=== PATIENT | male | born 1980 | race Caucasian/White ===

== ENCOUNTER 2017-10-25 06:00 | Observation (INO) | payer OTHER ==
[2017-10-11 12:18] VITALS: BMI 28.0
[2017-10-15 13:58] VITALS: BMI 28.0
--- NOTE | 2017-10-15 14:01 | PAT Medication Instructions ---
Service Date Oct 15, 2017. Current Home Medication List Egrwhsz-Gzqxvhljtodhs-Kltolkis (Excedrin Extra Strength), 4 TAB PO PRN Buprenorphine Hcl-Naloxone Hcl (Suboxone 8-2 Mg), 0.25 TAB PO QID Medication Instructions For Your Scheduled Surgery - Hold the following medications the morning of surgery: Crhuetb-Ohdrtdwdxrxtn-Cwtdjcoq (Excedrin Extra Strength), 4 TAB PO PRN - Take the following medications the morning of surgery with a sip of water: Buprenorphine Hcl-Naloxone Hcl (Suboxone 8-2 Mg), 0.25 TAB PO QID - Take the following medications as scheduled the night before surgery: Buprenorphine Hcl-Naloxone Hcl (Suboxone 8-2 Mg), 0.25 TAB PO QID Vzxjrqc-Vadwhyrkkgthu-Rdidprng (Excedrin Extra Strength), 4 TAB PO PRN (if needed) If you have any questions please call us at [phone] or [phone] or [phone]
--- NOTE | 2017-10-15 14:47 | DIAGNOSTIC IMAGING REPORT ---
CHEST 2 VIEWS ROUTINE CLINICAL HISTORY: 37 years-old Male presenting with preoperative assessment. TECHNIQUE: PA and lateral views of the chest were obtained. COMPARISON: None. FINDINGS: Cardiomediastinal silhouette normal. Lungs and pleural spaces clear. Osseous structures normal. Upper abdomen normal. IMPRESSION: 1. No acute cardiopulmonary disease. Electronically signed by: Micky Encinas M.D. 10/15/2017 2:46 PM Dictated Date/Time: 10/15/2017 2:45 PM
[2017-10-15 15:18] LABS: BASO % 0.4 %; BASO ABS # 0.03 K/uL (0-0.2); EOS % 2.5 %; EOS ABS # 0.19 K/uL (0-0.5); HEMATOCRIT 43.1 % (42-52); IG# 0.01 K/uL (0.00-0.02); LYMPH % 34.4 %; LYMPH ABS # 2.58 K/uL (1.2-3.4); MEAN CELL VOLUME 87.6 fL (80-100); MEAN CORPUSCULAR HEMOGLOBIN 30.5 pg (25-34); MEAN CORPUSCULAR HGB CONC 34.8 g/dl (32-36); MEAN PLATELET VOLUME 9.9 fL (7.4-10.4); MONO % 7.3 %; MONO ABS # 0.55 K/uL (0.11-0.59); NEUT % 55.3 %; NEUT ABS # 4.15 K/uL (1.4-6.5); PLATELET COUNT 276 K/uL (130-400); RED CELL DISTRIBUTION WIDTH CV 12.4 % (11.5-14.5); WHITE BLOOD COUNT 7.51 K/uL (4.8-10.8)
[2017-10-15 15:31] LABS: CREATININE 0.84 mg/dl (0.60-1.40); POTASSIUM 3.8 mmol/L (3.5-5.1)
[2017-10-15 15:33] LABS: PTT PATIENT 29.2 SECONDS (21.0-31.0)
[~2017-10-25] VITALS: Ht 180.3 cm; Wt 90.9 kg
[2017-10-25] VITALS (14 sets, daily range): BP systolic 113–146; BP diastolic 61–92; PULSE 53–94; TEMP 36.6–37; O2SAT 93–99; Ht 180.3 cm; Wt 90.9 kg
[~2017-10-25 06:00] MED LIST: ACETAMINOPHEN 500 MG TAB PO SCH; ASPI-391 PO; BUPR1SUB23 PO; CEFAZOLIN 2000MG IV PUSH 15 ML IV SCH; CeleBREX 200 MG CAP PO SCH; GABAPENTIN 900 MG PO SCH; LACTATED RINGER'S 1000ML 1,000 ML IV SCH
[2017-10-25] MEDS ORDERED: PROPOFOL IV EMULSION 10 MG/ML 20 ML VIAL ONE (06:35)
[2017-10-25] MEDS ORDERED: GLYCOPYRROLATE INJ 0.2 MG/ML VIAL ONE ×2 (06:35→08:17)
[2017-10-25] MEDS ORDERED: DEXAMETHASONE SOD INJ 4 MG/ML VIAL ONE (06:35)
[2017-10-25] MEDS ORDERED: ONDANSETRON INJ 2 MG/ML 2 ML VIAL ONE ×2 (06:35→09:00)
[2017-10-25] MEDS ORDERED: FENTANYL CITRATE INJ 50 MCG/1 ML 2 ML VIAL ONE (06:35)
[2017-10-25] MEDS ORDERED: NEOSTIGMINE METHYLSULFATE 1 MG/ML 10ML VIAL ONE (06:35)
[2017-10-25] MEDS ORDERED: MIDAZOLAM HCL 1 MG/ML 2ML VIAL ONE (06:35)
[2017-10-25] MEDS ORDERED: LIDOCAINE HCL 2% 2 ML VIAL (20MG/ML) ONE (06:35)
[2017-10-25] MEDS ORDERED: LARYING-O-JET KIT (LTA) ONE (06:36)
[2017-10-25] MEDS ORDERED: SCOPOLAMINE 1.5 MG TDSY TD ONE ×2 (07:11→08:30)
[2017-10-25] MEDS ORDERED: HYDROmorphone INJ 2 MG/ML SYR/VIAL IV PRN (07:15)
[2017-10-25] MEDS ORDERED: ONDANSETRON INJ 2 MG/ML 2 ML VIAL IV PRN ×2 (07:15→09:15)
[2017-10-25] MEDS ORDERED: LABETALOL HCL IV 5 MG/ML 20ML IV PRN (07:15)
[2017-10-25] MEDS ORDERED: ATROPINE SULFATE 0.1 MG/ML 5ML SYR IV PRN (07:15)
[2017-10-25] MEDS ORDERED: BACITRACIN 50000 UNIT VIAL ONE (07:17)
--- NOTE | 2017-10-25 07:41 | History & Physical Bridge Note ---
H&P Re-Evaluation Bridge Note: I have examined the patient, reviewed the History & Physical and in the interval since the performance of the History & Physical I have noted the following changes of clinical significance: No changes noted
--- NOTE | 2017-10-25 07:42 | History and Physical ---
History & Physical Date Oct 25, 2017. Chief Complaint Neck and arm pain History of Present Illness The patient is a 37 year old male with complaints of neck and arm pain Additional History Hepatic Disease: No Endocrine Disorder: No Kidney Disease: No Hypertension: No Heart Disease: No Bleeding Tendencies: No Infectious Diseases: No Allergies Coded Allergies: No Known Allergies (Unverified , 10/11/17) Home Medications Scheduled Auuuogx-Avwmibhgpszkv-Bqsxkudx (Excedrin Extra Strength), 4 TAB PO PRN Buprenorphine Hcl-Naloxone Hcl (Suboxone 8-2 Mg), 0.25 TAB PO QID Physical Examination Skin: warm/dry, no rash Eyes: normal inspection, EOMI, sclerae normal ENT: normal ENT inspection, pharynx normal Head: normocephalic, atraumatic Neck: supple, no adenopathy, trachea midline Respiratory/Chest: lungs clear, normal breath sounds, no respiratory distress Cardiovascular: regular rate, rhythm, no edema, no murmur Abdomen / GI: normal bowel sounds, non tender Back: normal inspection Extremities: normal inspection, normal range of motion Neurologic/Psych: no motor/sensory deficits, alert, normal reflexes, oriented x 3 Diagnosis Cervical spondylosis with radiculopathy Plan of Treatment Anterior cervical discectomy and fusion C6-7
[2017-10-25] MEDS ORDERED: ROCURONIUM BROMIDE 10 MG/ML 5 ML VIAL ONE (08:17)
[2017-10-25] MEDS ORDERED: HYDROmorphone INJ 2 MG/ML SYR/VIAL ONE (08:17)
[2017-10-25] MEDS ORDERED: FLOSEAL HEMOSTATIC MATRIX 10ML TOP ONE (08:56)
--- NOTE | 2017-10-25 09:10 | [facility] Operative Report ---
Operative Report Operative Date Oct 25, 2017. Pre-Operative Diagnosis Cervicle Spondylosis with radiculopathy Post-Operative Diagnosis Cervicle Spondylosis with radiculopathy Procedure(s) Performed 1. Anterior cervical discectomy bilateral foraminotomies C6-7. #2 anterior cervical arthrodesis C6-7. #3 8 mm cortical allograft filled with DBM C6-7. 4 application of herrera plate and screws across C6-7. Surgeon Dr Mattson Plate Worker Surgeon(s) None Estimated Blood Loss 20cc Findings Herniated nucleus pulposus C6-7 Specimens None as per surgeon Anesthesia Type General Description of Procedure Patient was met with preoperatively case discussed all questions addressed. After informed consent patient was taken to the operative suite underwent intubation and placed in supine position injection table with the head in the Redfox headholder. All bony prominences well-padded eyes inspected to ensure no external pressure placed upon the. This point the anterior cervical spine was prepped and draped in the normal sterile fashion. The assistance of fluoroscopy identified the C6-7 disc space and a transverse incision was placed along the right anterior aspect of the cervical spine overlying this region. Sharp dissection with the assistance of bipolar cautery was performed down to and exposing the C6-7 disc space. Self retaining retractors placed. I verified my position with fluoroscopy. Then performed a complete discectomy of C6-7 out to the uncovertebral joints bilaterally. This included removal of all posterior annular fibers longitudinal ligament addressing disc herniation possibly on the right side and in the foramen. After this complete and plates burred to subcortical bleeding bone and a 8 mm cortical allograft filled DBM tapped in position. Distracting apparatus was removed and a 14 mm herrera plate and screws applied with the assistance of fluoroscopy. Incision was then copiously irrigated explored to ensure no damage to surrounding structures remaining bleeding 10 round ESTEPHANIA drain inserted. Incision then closed with 2-0 Vicryl in a fashion of 4 Monocryl for final skin closure Steri-Strips sterile dressings placed. Patient weakened taken PACU stable condition. I attest to the content of the Intraoperative Record and any orders documented therein. Any exceptions are noted below.
[2017-10-25] MEDS ORDERED: LORAZEPAM 0.5 MG TAB PO PRN (09:15)
[2017-10-25] MEDS ORDERED: SCOPOLAMINE 1.5 MG TDSY TD SCH (09:15)
[2017-10-25] MEDS ORDERED: LORAZEPAM INJ 0.5 MG in SYRINGE 0.75 ML IV PRN (09:15)
[2017-10-25] MEDS ORDERED: MAGNESIUM HYDROXIDE SUSP 30 ML UDC PO PRN (09:15)
[2017-10-25] MEDS ORDERED: HYDROmorphone INJ 0.5 MG/0.5 ML SYR IV PRN (09:15)
[2017-10-25] MEDS ORDERED: DiphenhydrAMINE HCL 50 MG/ML VIAL IV PRN (09:15)
[2017-10-25] MEDS ORDERED: RACEPINEPHRINE 2.25% NEBU SOLN 0.5 ML VIAL INH PRN (09:15)
[2017-10-25] MEDS ORDERED: CEFAZOLIN IV 2,000 MG in DEXTROSE 5% 50ML 50 ML IV SCH (09:15)
[2017-10-25] MEDS ORDERED: NALOXONE HCL 0.4 MG/1 ML VIAL/CARP IV PRN (09:15)
[2017-10-25] MEDS ORDERED: DO NOT ADMINISTER FLU VACCINE PRN (09:15)
[2017-10-25] MEDS ORDERED: DO NOT ADMINISTER PNEUMOCOCCAL VACCINE PRN (09:15)
[2017-10-25] MEDS ORDERED: ACETAMINOPHEN IV 100 ML IV PRN (09:15)
[2017-10-25] MEDS ORDERED: DEXAMETHASONE INJ 8 MG in SYRINGE 0 ML IV PRN (09:15)
[2017-10-25] MEDS ORDERED: HYDROmorphone INJ 1 MG/ML SYR ONE (09:41)
--- NOTE | 2017-10-25 09:46 | DIAGNOSTIC IMAGING REPORT ---
INTRAOPERATIVE RADIOGRAPHS CLINICAL HISTORY: C6-C7 spinal fusion. Fluoroscopy time: 8 seconds. FINDINGS: 2 spot fluoroscopic views of the cervical spine are presented. There has been discectomy at C6-C7 with anterior fusion at these levels. The orthopedic hardware appears intact. An endotracheal tube is in place. IMPRESSION: Intraoperative images from C6-C7 spinal fusion as above. Electronically signed by: Mil Marroquin M.D. 10/25/2017 9:45 AM Dictated Date/Time: 10/25/2017 9:44 AM
--- NOTE | 2017-10-25 10:26 | Anesthesiology Progress Note ---
Anesthesia Post Op Note Date & Time Oct 25, 2017 at 10:26 Vital Signs Pain Intensity: 4 Vital Signs Past 12 Hours Date Time Temp Pulse Resp B/P (MAP) Pulse Ox O2 Delivery O2 Flow Rate FiO2 10/25/17 10:20 36.8 60 18 127/87 98 Nasal Cannula 2 10/25/17 10:10 62 18 125/82 98 Nasal Cannula 2 10/25/17 10:00 60 16 116/76 99 Nasal Cannula 2 10/25/17 09:50 59 16 119/72 99 Nasal Cannula 2 10/25/17 09:40 62 16 122/86 99 Oxymask 10 10/25/17 09:30 66 16 127/87 99 Oxymask 10 10/25/17 09:22 36.6 91 16 143/93 98 Oxymask 10 10/25/17 06:19 36.7 93 20 146/92 99 Room Air Notes Mental Status: alert / awake / arousable, participated in evaluation Pt Amnestic to Procedure: Yes Nausea / Vomiting: adequately controlled Pain: adequately controlled Airway Patency, RR, SpO2: stable & adequate BP & HR: stable & adequate Hydration State: stable & adequate Anesthetic Complications: no major complications apparent
[2017-10-25] MEDS ORDERED: HYDROmorphone INJ 1 MG/ML SYR IV PRN (11:15)
[2017-10-25] MEDS: LACTATED RINGER'S 1000ML 1,000 ML IV SCH ×2 (11:34→21:27)
[2017-10-25] MEDS: OXYCODONE HCL IR 5 MG TAB (IMMEDIATE RELEASE) PO PRN ×4 (11:34→23:49)
[2017-10-25] MEDS ORDERED: RXC5 PO (12:31)
--- NOTE | 2017-10-25 12:32 | Discharge Instructions ---
Discharge Instructions Date of Service Oct 25, 2017. Admission Reason for Admission: Spinal Stenosis Discharge Discharge Diagnosis / Problem: cervical stenosis Discharge Goals Goal(s): Improve function Activity Recommendations Activity Limitations: per Instructions/Follow-up section . Instructions / Follow-Up Instructions / Follow-Up ACTIVITY RECOMMENDATIONS: SELF CARE INSTRUCTIONS AFTER CERVICAL FUSIONS 1. No smoking. Smoking drastically decreases the chance of a solid fusion. 2. No bending, lifting more than 5 pounds, or twisting (roll like a log when turning in bed). 3. You may shower 3 days after surgery. Thoroughly dry wound. Do not soak in the tub. 4. Cervical collar: Must be worn at all times including sleeping. You may remove the brace only to bath, eat and if you are sitting in a recliner. 5. Please walk as much as you can for exercise. Gradually increase the distance that you walk as your endurance increases. SPECIAL CARE INSTRUCTIONS: VERY IMPORTANT TO READ AND REVIEW A. Do not take any anti-inflammatory medications (i.e. Indocin, Advil, Aspirin, Naprosyn, Aleve, Motrin, etc.) as these may inhibit the chance of a solid fusion. Tylenol is okay to take. B. Your surgical incision has been closed with a cosmetic suture under the skin that will dissolve in about 6 weeks. In 14 days, you can use a pair of clean scissors and cut the suture that is left outside of the skin at the ends of your incision. C. Complications are uncommon, but please contact us if you have any signs or symptoms of: 1. wound infection (fever higher than 102.5 degrees F, redness, separation of wound, drainage, or increasing pain from the incision) 2. blood clots in legs (pain, swelling, redness and warmth in legs) 3. urinary tract infection (fever higher than 102.5 degrees, burning upon urination or increased frequency of urination) 4. nerve problems (inability to walk on your toes or heels, numbness, loss of bowel or bladder control) 5. any other symptoms that concern you. D. Please call the office at if you have any concerns or questions about your operation or recovery. MANAGING PAIN AFTER SPINAL SURGERY 1. Narcotic medication is intended for short-term use and will be provided for surgical pain. Surgical pain usually lasts for a period of 4-6 weeks. Narcotic medication includes Percocet, Vicodin, Darvocet, Tylenol #3 or Lortab. 2. Longer-term pain is more appropriately treated with non-narcotic medication such as Tylenol ES. 3. Muscle spasm is not appropriately treated with narcotics. Muscle relaxers such as Soma, Flexeril or Skelaxin can be used along with Tylenol ES. 4. Remember that we all live with some "aches and pains". This is not unusual or uncommon after an injury or as we get older. 5. We will provide appropriate medication within the normal guidelines of their prescribed use. We will also be very cautious and aware of potential abuse and extended duration of patients' medication needs. 6. Please allow 2-3 days to process refills. Prescriptions will not be mailed but must be picked up at the office. FOLLOW UP VISIT: Keep your scheduled follow-up appointment. Any questions, please call the office at . Current Hospital Diet Patient's current hospital diet: Clear Liquid Diet Discharge Diet Recommended Diet: Regular Diet Procedures Procedures Performed: 1. Anterior cervical discectomy bilateral foraminotomies C6-7. #2 anterior cervical arthrodesis C6-7. #3 8 mm cortical allograft filled with DBM C6-7. 4 application of herrera plate and screws across C6-7. Pending Studies Studies pending at discharge: no Medical Emergencies . Who to Call and When: Medical Emergencies: If at any time you feel your situation is an emergency, please call 911 immediately. . Non-Emergent Contact Non-Emergency issues call your: Primary Care Provider . "Provider Documentation" section prepared by Lenny Mattson. .
[2017-10-25] MEDS ORDERED: IV FLUIDS COMPLETED PRN (14:00)
[2017-10-25] MEDS: CEFAZOLIN IV 2,000 MG in SYRINGE 0 ML IV SCH ×2 (15:38→23:49)
[2017-10-25] MEDS: CHECK SCOPOLAMINE PATCH PLACEMENT SCH ×2 (15:38→23:50)
[2017-10-25] MEDS ORDERED: CHECK SCOPOLAMINE PATCH PLACEMENT SCH (16:00)
[2017-10-25] MEDS: DOCUSATE SODIUM 100 MG CAP PO SCH (21:00)
[2017-10-26] VITALS (10 sets, daily range): BP systolic 103–116; BP diastolic 63–66; PULSE 51–71; TEMP 36.5–37; O2SAT 93–97
[2017-10-26] MEDS: OXYCODONE HCL IR 5 MG TAB (IMMEDIATE RELEASE) PO PRN ×2 (06:14→11:19)
[2017-10-26] MEDS: CEFAZOLIN IV 2,000 MG in SYRINGE 0 ML IV SCH (08:28)
[2017-10-26] MEDS: CHECK SCOPOLAMINE PATCH PLACEMENT SCH (08:29)
[2017-10-26] MEDS: DOCUSATE SODIUM 100 MG CAP PO SCH (08:29)
[2017-10-26] MEDS: LACTATED RINGER'S 1000ML 1,000 ML IV SCH (09:22)
--- NOTE | 2017-10-26 10:29 | Discharge Summary ---
Orthopedic Discharge Summary Admission Date/Reason Oct 25, 2017 at 09:13 Spinal Stenosis. Discharge Date/Disposition Oct 26, 2017 Home Diagnosis Principal Diagnosis: Cervical spinal stenosis with radiculopathy Admission Physical Exam As per Admitting History & Physical. Hospital Course Patient underwent anterior cervical discectomy and fusion tolerated this well was taken to the orthopedic floor postoperatively. Postop day #1 he was up and amatory swallowing well no hoarseness arm symptoms markedly improved ESTEPHANIA drain decreased appropriately subsequently discharged home. Discharge orders and instructions found in the chart for further review. Discharge Instructions Please refer to the electronic Patient Visit Report (Discharge Instructions) for additional information.
[2017-10-27] MEDS ORDERED: BISACODYL 5 MG TABEC PO PRN (06:00)
[2017-10-27] MEDS ORDERED: BISACODYL 10 MG SUPP PR PRN (06:00)
[2017-10-27] MEDS ORDERED: POLYETHYLENE (MIRALAX) 17 GM PACK PO SCH (09:00)
== END 2017-10-26 11:34 | disposition home or self-care (01) ==
LOC: C.ACU 06:00 → C.3E 09:13 → ENRESERV 10:13
PROVIDERS: ADMIT Orthopaedic Surgery Orthopaedic Surgery of the Spine; ATTEND Orthopaedic Surgery Orthopaedic Surgery of the Spine
DX: M47.22 Other spondylosis with radiculopathy, cervical region (principal); K21.9 Gastro-esophageal reflux disease without esophagitis; G62.9 Polyneuropathy, unspecified